=== PATIENT | female | born 1940 | race Caucasian/White ===

== ENCOUNTER 2017-05-19 22:54 | Inpatient (IN) | payer OTHER ==
[~2017-05-19] VITALS: Ht 154.9 cm; Wt 73.5 kg
--- NOTE | 2017-05-19 22:57 | ED GI/GU/ABDOMINAL COMPLAINT ---
History of Present Illness General Chief Complaint: Abdominal Pain/Flank Pain Stated Complaint: BIBA LOW ABD PAIN, ?CONSTIPATION Source: patient Exam Limitations: no limitations Vital Signs & Intake/Output Vital Signs & Intake/Output Vital Signs Date Time Temp Pulse Resp B/P B/P Pulse O2 O2 Flow FiO2 Mean Ox Delivery Rate 05/20 0220 99.0 100 20 138/68 98 Room Air 05/20 0207 99.0 84 20 122/60 97 05/20 0018 98.4 112 18 126/79 97 Room Air 05/19 2310 98.0 128 16 159/95 99 Room Air ED Intake and Output 05/20 0000 05/19 1200 Intake Total Output Total Balance Patient 162 lb Weight Weight Reported by Patient Measurement Method F Triage Nurses Notes Reviewed? yes ? N Is pt currently ? No (N) Timing: recent history Quality/Severity: aching, cramping, moderate Severity Numbers: 5 Location: periumbilical Activities at Onset: none HPI: PT IS A 76 Y/O FEMALE WITH PMH OF HLD, DM ON METFORMIN, IRON DEFICIENCY ANEMIA who presents emergency room brought in by an lens for concerns of a 48-hour history of gradually worsening nonradiating periumbilical abdominal pain. Patient states that she has not had a bowel movement in over 24 hours were yesterday she tried Pepto-Bismol and Gas-X and had minimal dark stool with no blood patient has not had a bowel movement today. Patient denies any fever chills shortness breath or arm pain jaw pain back pain dysuria hematuria vaginal bleeding or discharge. Patient denies any significant NSAID use or alcohol use. Patient does state that she was able to drink water today with no change in symptoms and was able tolerate with no vomiting (Lopez Hess) Allergies Coded Allergies: No Known Allergies (05/20/17) Reconcile Medications Metformin HCl (Metformin HCl ER) 500 MG TAB.ER.24H 1 TAB PO BID DM (Reported) Simvastatin (Simvastatin*) 10 MG TABLET 1 TAB PO QPM CHOL (Reported) (Tameka SNELL,Odell Kolb) Past History Travel History Traveled to [place] past 21 day No Medical History Any Pertinent Medical History? see below for history Cardiovascular: hyperlipidemia Endocrine: diabetes Blood Disorders: anemia Surgical History Surgical History: non-contributory Family History Hx Contributory? No (Lopez Hess) Review of Systems Review of Systems Constitutional: Reports: see HPI. EENTM: Reports: no symptoms. Respiratory: Reports: no symptoms. Cardiovascular: Reports: no symptoms. GI: Reports: see HPI, abdominal pain, constipation. Denies: bloating, nausea. Genitourinary: Reports: no symptoms. Musculoskeletal: Reports: no symptoms. Skin: Reports: no symptoms. Neurological/Psychological: Reports: no symptoms. Hematologic/Endocrine: Reports: no symptoms. Immunologic/Allergic: Reports: no symptoms. All Other Systems: Reviewed and Negative (Lopez Hess) Physical Exam Physical Exam General Appearance: no apparent distress, alert Head: atraumatic Eyes: Bilateral: normal appearance. Ears, Nose, Throat, Mouth: hearing grossly normal Neck: normal inspection Respiratory: normal breath sounds Cardiovascular: tachycardia Gastrointestinal: normal bowel sounds, soft, tenderness (PERIUMBILICAL TENDERNESS) Back: normal inspection Neurologic/Psych: no motor/sensory deficits Skin: intact, normal color, warm/dry Core Measures ACS in differential dx? No Sepsis Present: No Sepsis Focused Exam Completed? No (Lopez Hess) Progress Differential Diagnosis: AAA, AMI, appendicitis, biliary colic, bowel obstruction , colon cancer, cholecystitis, diverticulitis, endometritis, esophageal varices, gastritis, hepatitis, hernia, hemorrhoids, ischemic bowel, inflamm bowel dis, kidney stone, ovarian cyst, ovarian torsion, pancreatitis, PID/cervicitis, peptic ulcer, PUD/GERD, perforated viscous, SBO, UTI/pyelo Plan of Care: Orders Procedure Date/time Status Nothing by Mouth 05/20 B Active [id number] VIEWS 05/20 1200 Active BASIC ELECTROLYTES PLUS BUN&CR 05/20 0700 Active Vital Signs 05/20 0246 Active Teach/Educate 05/20 245 Active Pain Treatment and Response 05/20 245 Active Nutritional Intake, Monitor 05/20 245 Active Isolation 05/20 024 Active Intake & Output 05/20 0246 Active Patient Care Conference 05/20 0246 Active Activity/Ambulation 05/20 245 Active Pathway - chart 05/20 0200 Active Pathway - chart 05/20 0128 Active Patient Data 05/20 0128 Active Misc Message 05/20 28 Active ED Holding Orders 05/20 28 Active Admit to inpatient 05/20 002 Active Vital Signs 05/209 Active Code Status 05/20 28 Active PARTIAL THROMBOPLASTIN TIME 05/20 0008 Complete PROTHROMBIN TIME 05/20 7 Complete LACTIC ACID 05/20 7 Complete TYPE & SCREEN (NOT X-MATCH) 05/20 7 Complete GLUCOSE NPO OR CONTINUOUS TF 05/20 UNK Active VTE Mechanical Prophylaxis 05/20 UNK Active Nursing Misc 05/20 UNK Active Intake & Output 05/20 UNK Active FingerStick- Glucose 05/20 UNK Active Activity/Ambulation 05/20 UNK Active TROPONIN LEVEL 05/19 230 Complete LIPASE 05/19 2301 Complete COMPREHENSIVE METABOLIC PANEL 05/19 2301 Complete CBC WITHOUT DIFFERENTIAL 05/19 2301 Complete AMYLASE 05/19 2301 Complete EKG 05/19 2301 Active Current Medications Sig/July Start time Last Medication Dose Stop Time Status Admin Pantoprazole Sodium 40 MG DAILY 05/20 1000 AC (Protonix) Heparin Sodium 5,000 UNIT Q8 05/20 0600 AC (Porcine) Insulin Human Regular 0 Q6 05/20 0600 AC (NovoLIN R) Acetaminophen 1,000 MG Q6P PRN 05/20 0130 AC (Ofirmev) N/A 1 UNIT (No Carrier) Dextrose/Sodium 1,000 ML .Q8H 05/20 0130 AC 05/20 Chloride 0148 (D5W-1/2 Normal Saline 1000ML) Morphine Sulfate 4 MG Q4-6 PRN PRN 05/20 0130 AC (Morphine) Morphine Sulfate 6 MG Q4-6 PRN PRN 05/20 0130 AC 05/20 (Morphine) 0455 Ondansetron HCl 4 MG Q8P PRN 05/20 0130 AC (Zofran) Sodium Chloride 1,000 ML ONCE ONE 05/20 0030 AC (Normal Saline 0.9%) 05/20 0709 Laboratory Tests 05/20/17 0308: Lactic Acid Cancelled 05/20/17 0025: Lactic Acid 1.4, PT 12.4, INR 1.18, APTT 20 L 05/20/17 0000: CBC w Diff NO MAN DIFF REQ, RBC 4.82, MCV 78.0 L, MCH 25.3 L, RDW 18.3 H, MPV 8.6, Gran % 70.9, Lymphocytes % 17.5 L, Monocytes % 11.0 H, Eosinophils % 0.2, Basophils % 0.4, Absolute Granulocytes 5.8, Absolute Lymphocytes 1.4, Absolute Monocytes 0.9 H, Absolute Eosinophils 0, Absolute Basophils 0, PUBS MCHC 32.4 L 05/19/175: Anion Gap 12, Estimated GFR 48 L, BUN/Creatinine Ratio 20.0, Glucose 192 H, Calcium 9.6, Total Bilirubin 0.6, AST 21, ALT 29, Alkaline Phosphatase 60, Troponin I < 0.01, Total Protein 6.4, Albumin 3.7, Globulin 2.7, Albumin/ Globulin Ratio 1.4, Amylase < 30 L, Lipase 25 05/19/172302: Amylase Cancelled, Lipase Cancelled Patient on initial examination was resting comfortable at bedside patient was offered pain medications however declines however has PERIumbilical point tenderness. Patient was afebrile Patient does have CT scan findings concerns of small bowel obstruction, discussed patient with Dr. Valencia who advised to not emergently provide patient with NG tube Surgical PA also CONSULTED PT discussed admission with patient who has no questions and was informed of patient's clinical disposition and agrees with admission PT NPO Diagnostic Imaging: Viewed by Me: CT Scan. Radiology Impression: acute abnormality Initial ED EKG: SINUS TACHYCARDIA 112 BPM Comments: PATIENT: SYED COOPER PRESENT AGE: 76 PATIENT ACCOUNT NO: [id number] : 41 LOCATION: ER ORDERING PHYSICIAN: Lopez ESCOBEDO SERVICE DATE: 05/19/17 EXAM TYPE: CAT - CT ABD & PELVIS W/O IV CONTRAS EXAMINATION: CT ABDOMEN AND PELVIS WITHOUT CONTRAST CLINICAL INFORMATION: Periumbilical pain. COMPARISON: None TECHNIQUE: Multidetector volumetric imaging was performed from the superior aspect of the liver through the pubic symphysis. Sagittal and coronal reformatted images were obtained on the technologist's workstation. DLP: 397.31 mGy-cm FINDINGS: LUNG BASES: The visualized lung bases are unremarkable. LIVER, GALLBLADDER, AND BILIARY TREE: 8 mm hypodensity central right lobe of liver indeterminate on this exam. Statistically likely small hepatic cyst. No suspicious liver lesion. No intrahepatic bile duct dilatation. Small stones seen in the dependent gallbladder. No edema around the gallbladder. No bile duct dilatation. PANCREAS: Unremarkable. SPLEEN: Unremarkable. ADRENAL GLANDS: Unremarkable. KIDNEYS AND URETERS: Lucency in the right and left parapelvic areas likely from parapelvic cysts. There is no hydroureter or significant dilatation of the calyces. There is a nonobstructive 6 mm stone in the lower pole of the right kidney. No ureteral calculus. MESENTERY: Small amount of free fluid in the mesentery. No inflammation or free air. BLADDER: Unremarkable. GASTROINTESTINAL TRACT: There is diverticulosis of sigmoid and left colon with a few diverticula of the right colon. No diverticulitis. There is mild dilatation of proximal mid small bowel loops. The distal small bowel loops are decompressed. Transition point in the low central pelvis. Bowel pattern suggests a mild small bowel obstruction. No bowel wall thickening or edema. No air in the bowel wall. The appendix is not seen. ABDOMINAL WALL: No significant hernia is appreciated. LYMPH NODES: Normal. VASCULAR: Unremarkable. PELVIC VISCERA: Uterus is anteverted. No adnexal abnormality. OSSEOUS STRUCTURES: Multilevel degenerative spondylosis of spine with bridging osteophytes of thoracic vertebrae. Facet joint arthrosis lower lumbar spine. IMPRESSION: 1. Partial small bowel obstruction. Small amount of fluid in the mesentery but no inflammation or free air. 2. Diverticulosis of colon without diverticulitis. 3. Appendix not visualized. 4. Cholelithiasis without acute change of gallbladder wall. 5. Nonobstructive 6 mm stone lower pole right kidney. 6. No ventral wall hernia. DICTATED BY: Alex Adrian MD DATE/TIME DICTATED:05/19/172344 SHEET MET[employer] LAY OUT WORKER:LYNN (Lopez Hess) Departure Departure Disposition: STILL A PATIENT Condition: Guarded Clinical Impression Primary Impression: Small bowel obstruction Departure Forms: Customer Survey General Discharge Information Admission Note Spoke With: Hima Valencia DO Documentation of Exam: Documentation of any treatments & extenuating circumstances including Concerns Regarding Discharge (functional status, medication knowledge or non-compliance, living conditions, etc.) that warrant an admission rather than observation: (Lopez Hess) PA/JOB RECRUITER Co-Sign Statement Statement: ED Attending supervision documentation- [x] I saw and evaluated the patient. I have also reviewed all the pertinent lab results and diagnostic results. I agree with the findings and the plan of care as documented in the PA's/JOB RECRUITER's documentation. Patient presents for evaluation of abdominal pain. Physical examination revealed a diffusely tender abdomen. [] I have reviewed the ED Record and agree with the PA's/JOB RECRUITER's documentation. [] Additions or exceptions (if any) to the PAs/JOB RECRUITER's note and plan are summarized below: [] (Tameka SNELL,Odell Kolb) Critical Care Note Critical Care Note Critical Care Time: 30-74 min (Lopez Hess)
--- NOTE | 2017-05-19 23:54 | CT SCAN REPORT ---
EXAMINATION: CT ABDOMEN AND PELVIS WITHOUT CONTRAST CLINICAL INFORMATION: Periumbilical pain. COMPARISON: None TECHNIQUE: Multidetector volumetric imaging was performed from the superior aspect of the liver through the pubic symphysis. Sagittal and coronal reformatted images were obtained on the technologist's workstation. DLP: 397.31 mGy-cm FINDINGS: LUNG BASES: The visualized lung bases are unremarkable. LIVER, GALLBLADDER, AND BILIARY TREE: 8 mm hypodensity central right lobe of liver indeterminate on this exam. Statistically likely small hepatic cyst. No suspicious liver lesion. No intrahepatic bile duct dilatation. Small stones seen in the dependent gallbladder. No edema around the gallbladder. No bile duct dilatation. PANCREAS: Unremarkable. SPLEEN: Unremarkable. ADRENAL GLANDS: Unremarkable. KIDNEYS AND URETERS: Lucency in the right and left parapelvic areas likely from parapelvic cysts. There is no hydroureter or significant dilatation of the calyces. There is a nonobstructive 6 mm stone in the lower pole of the right kidney. No ureteral calculus. MESENTERY: Small amount of free fluid in the mesentery. No inflammation or free air. BLADDER: Unremarkable. GASTROINTESTINAL TRACT: There is diverticulosis of sigmoid and left colon with a few diverticula of the right colon. No diverticulitis. There is mild dilatation of proximal mid small bowel loops. The distal small bowel loops are decompressed. Transition point in the low central pelvis. Bowel pattern suggests a mild small bowel obstruction. No bowel wall thickening or edema. No air in the bowel wall. The appendix is not seen. ABDOMINAL WALL: No significant hernia is appreciated. LYMPH NODES: Normal. VASCULAR: Unremarkable. PELVIC VISCERA: Uterus is anteverted. No adnexal abnormality. OSSEOUS STRUCTURES: Multilevel degenerative spondylosis of spine with bridging osteophytes of thoracic vertebrae. Facet joint arthrosis lower lumbar spine. IMPRESSION: 1. Partial small bowel obstruction. Small amount of fluid in the mesentery but no inflammation or free air. 2. Diverticulosis of colon without diverticulitis. 3. Appendix not visualized. 4. Cholelithiasis without acute change of gallbladder wall. 5. Nonobstructive 6 mm stone lower pole right kidney. 6. No ventral wall hernia.
[2017-05-20 00:11] LABS: ABSOLUTE BASOPHIL COUNT 0 /CUMM (0.0-0.2); ABSOLUTE EOSINOPHIL COUNT 0 /CUMM (0.0-0.7); ABSOLUTE GRANULOCYTE CT 5.8 /CUMM (1.4-6.5); ABSOLUTE LYMPH COUNT 1.4 /CUMM (1.2-3.4); ABSOLUTE MONOCYTE COUNT 0.9 /CUMM (0.10-0.60); BASOPHIL % 0.4 % (0.0-2.0); EOSINOPHIL % 0.2 % (0-5); GRANULOCYTE % 70.9 % (42.2-75.2); HEMATOCRIT 37.6 % (37-47); MEAN CORPUSCULAR HGB 25.3 PG (27.0-31.0); MEAN CORPUSCULAR HGB CONC 32.4 G/DL (33.0-37.0); MEAN PLATELET VOLUME 8.6 FL (7.4-10.4); PLATELET COUNT 277 /CUMM (130-400); RBC DISTRIBUTION WIDTH 18.3 % (11.5-14.5); RED BLOOD CELL CT 4.82 /CUMM (4.20-5.40); WHITE BLOOD CELL COUNT 8.1 /CUMM (4.8-10.8)
[2017-05-20 00:43] LABS: PT 12.4 SEC (9.4-12.5); PTT 20 SEC (25-37)
[2017-05-20] MEDS ORDERED: SIMVASTATIN10 M1 PO (01:12)
[2017-05-20] MEDS ORDERED: METFORMIN HCL500 M4 PO (01:12)
--- NOTE | 2017-05-20 02:02 | History & Physical ---
George Willoughby 05/20/17 0130: General Information and HPI MD Statement: I have seen and personally examined SYED COOPER and documented this H&P. The patient is a 76 year old F who presented with a patient stated chief complaint of []. Source of Information: patient Exam Limitations: no limitations History of Present Illness: This is a 76 year-old female with a history of diabetes, hypercholesterolemia, iron deficiency and B12 anemia who presents to the emergency room complaining of a 2 day history of constant epigastric abdominal pain. She states she had a hard boiled egg and half a bagel yesterday morning and around 1 pm developed epigastric pain with associated nausea and decreased appetite. She states she took peptobismol and gas-x without relief. She also reports taking senna and had a small dark-colored stool this morning. She reports passing flatus and a change in the color and frequency of her bowels since she started taking iron in August. She reports similar symptoms 3 months ago after consuming pumpkin seeds, which resolved with an unknown OTC substance that she cannot recall. She reports her last colonoscopy was last year where she was found to have H. Pylroi and completed a 2 week treatment and was retested and found negative to have H. Pylori. Due to persistent pain, patient presented to the ER for further evaluation. In the ER, she was found to have a partial small bowel obstruction on CT scan. Allergies/Medications Allergies: Coded Allergies: No Known Allergies (05/20/17) Home Med list Metformin HCl (Metformin HCl ER) 500 MG TAB.ER.24H 1 TAB PO BID DM (Reported) Simvastatin (Simvastatin*) 10 MG TABLET 1 TAB PO QPM CHOL (Reported) Past History Travel History Traveled to [place] past 21 day No Medical History Cardiovascular: hyperlipidemia Endocrine: diabetes Blood Disorders: anemia Surgical History Surgical History: non-contributory Past Family/Social History Psychosocial History ETOH Use: occasional use Illicit Drug Use: denies illicit drug use Review of Systems Review of Systems Constitutional: Denies: no symptoms. EENTM: Denies: no symptoms. Cardiovascular: Denies: no symptoms. Respiratory: Denies: no symptoms. GI: Reports: see HPI. Genitourinary: Denies: no symptoms. Musculoskeletal: Denies: no symptoms. Skin: Denies: no symptoms. Neurological/Psychological: Denies: no symptoms. Hematologic/Endocrine: Denies: see HPI. Immunologic/Allergic: Denies: no symptoms. All Other Systems: Reviewed and Negative Exam & Diagnostic Data Last 24 Hrs of Vital Signs/I&O Vital Signs Date Time Temp Pulse Resp B/P B/P Pulse O2 O2 Flow FiO2 Mean Ox Delivery Rate 05/20 0018 98.4 112 18 126/79 97 Room Air 05/19 2310 98.0 128 16 159/95 99 Room Air Intake & Output 05/20 0800 05/20 0000 05/19 1600 Intake Total Output Total Balance Patient 162 lb Weight Weight Reported by Patient Measurement Method Physical Exam General Appearance Alert, Oriented X3, No Acute Distress Skin Temp/Moisture Exam: Warm/Dry HEENT Atraumatic, Mucous Membr. moist/pink Neck Supple, No JVD, No LAD Cardiovascular Regular Rate, Normal S1, Normal S2 Lungs Clear to Auscultation Abdomen Soft, Mildly distended with normoactive bowel sounds, tympanic to percussion, tender to light and deep palpation in the epigastric region, no rebound Last 24 Hrs of Labs/Yehuda: Laboratory Tests 05/20/17 0025: Lactic Acid 1.4, PT 12.4, INR 1.18, APTT 20 L 05/20/17 0000: CBC w Diff NO MAN DIFF REQ, RBC 4.82, MCV 78.0 L, MCH 25.3 L, RDW 18.3 H, MPV 8.6, Gran % 70.9, Lymphocytes % 17.5 L, Monocytes % 11.0 H, Eosinophils % 0.2, Basophils % 0.4, Absolute Granulocytes 5.8, Absolute Lymphocytes 1.4, Absolute Monocytes 0.9 H, Absolute Eosinophils 0, Absolute Basophils 0, PUBS MCHC 32.4 L 05/19/17 2315: Anion Gap 12, Estimated GFR 48 L, BUN/Creatinine Ratio 20.0, Glucose 192 H, Calcium 9.6, Total Bilirubin 0.6, AST 21, ALT 29, Alkaline Phosphatase 60, Troponin I < 0.01, Total Protein 6.4, Albumin 3.7, Globulin 2.7, Albumin/ Globulin Ratio 1.4, Amylase < 30 L, Lipase 25 05/19/172302: Amylase Cancelled, Lipase Cancelled Diagnostic Data Other Results SERVICE DATE: 05/19/17-2302 EXAM TYPE: CAT - CT ABD & PELVIS W/O IV CONTRAS EXAMINATION: CT ABDOMEN AND PELVIS WITHOUT CONTRAST CLINICAL INFORMATION: Periumbilical pain. COMPARISON: None TECHNIQUE: Multidetector volumetric imaging was performed from the superior aspect of the liver through the pubic symphysis. Sagittal and coronal reformatted images were obtained on the technologist's workstation. DLP: 397.31 mGy-cm FINDINGS: LUNG BASES: The visualized lung bases are unremarkable. LIVER, GALLBLADDER, AND BILIARY TREE: 8 mm hypodensity central right lobe of liver indeterminate on this exam. Statistically likely small hepatic cyst. No suspicious liver lesion. No intrahepatic bile duct dilatation. Small stones seen in the dependent gallbladder. No edema around the gallbladder. No bile duct dilatation. PANCREAS: Unremarkable. SPLEEN: Unremarkable. ADRENAL GLANDS: Unremarkable. KIDNEYS AND URETERS: Lucency in the right and left parapelvic areas likely from parapelvic cysts. There is no hydroureter or significant dilatation of the calyces. There is a nonobstructive 6 mm stone in the lower pole of the right kidney. No ureteral calculus. MESENTERY: Small amount of free fluid in the mesentery. No inflammation or free air. BLADDER: Unremarkable. GASTROINTESTINAL TRACT: There is diverticulosis of sigmoid and left colon with a few diverticula of the right colon. No diverticulitis. There is mild dilatation of proximal mid small bowel loops. The distal small bowel loops are decompressed. Transition point in the low central pelvis. Bowel pattern suggests a mild small bowel obstruction. No bowel wall thickening or edema. No air in the bowel wall. The appendix is not seen. ABDOMINAL WALL: No significant hernia is appreciated. LYMPH NODES: Normal. VASCULAR: Unremarkable. PELVIC VISCERA: Uterus is anteverted. No adnexal abnormality. OSSEOUS STRUCTURES: Multilevel degenerative spondylosis of spine with bridging osteophytes of thoracic vertebrae. Facet joint arthrosis lower lumbar spine. IMPRESSION: 1. Partial small bowel obstruction. Small amount of fluid in the mesentery but no inflammation or free air. 2. Diverticulosis of colon without diverticulitis. 3. Appendix not visualized. 4. Cholelithiasis without acute change of gallbladder wall. 5. Nonobstructive 6 mm stone lower pole right kidney. 6. No ventral wall hernia. Assessment/Plan Assessment: This is a 76 year-old female with a history of type 2 diabetes, hypercholesterolemia, iron deficiency and B12 anemia who presents with a 2 day history of epigastric pain with associated nausea, decreased appetite, dehydration and evidence of a partial sbo on imaging. She reports passing flatus an a small BM this morning Keep npo on IVF IV analgesics/antiemetics on board Insulin sliding scale, fingersticks Q6 Monitor with serial abdominal exams GI/DVT ppx on board Reeval with AXR with gastrograffin tomorrow am Repeat chem in am Place in observation for conservative management D/w Dr. Valencia As Ranked By This Provider Problem List: 1. Partial small bowel obstruction Core Measures/Misc (01/30) Acute Coronary Syndrome ACS Diagnosis: No Congestive Heart Failure Congestive Heart Failure Diagnosis No Cerebrovascular Accident CVA/TIA Diagnosis: No VTE (View Protocol) VTE Risk Factors Age>40 No Mechanical VTE Prophylaxis d/t N/A MechProphylax Ordered No VTE Pharm Prophylaxis d/t NA PharmProphylax ordered Sepsis (View protocol) Sepsis Present: No Erik Hima MCCLAIN 05/20/17 1810: Attending MD Review Statement Attending Statement Attending MD Statement: examined this patient, discuss w/resident/PA/CLINICAL TRIAL DATA MANAGER, agreed w/resident/PA/CLINICAL TRIAL DATA MANAGER, discussed with family, reviewed EMR data (avail), reviewed images Attending Assessment/Plan: Patient seen and examined, agree with above. 2 days of epigastric discomfort and only small amount of stool yeaterday morning. Currently feels better with pretty much no pain, N, or V (had an episode of emesis earlier today). Afebrile HR 84- 128 (patient very nervous about being in the hospital) BP ok. Abd - soft, mild lower abdominal discomfort, no peritroneal signs, no tympany. Labs ok. CT scan - ?mild partial SBO? (as read by radiologist), AXR today contrast has not reached the cecum, only a couple of dilated loops in the pelvis. Given patient's clinical improvement will continue conservative management, repeat AXR in AM, NPO/IVF, D/W patient and family that if no resolution in next 24-48 hours she may need a surgical intervention.
[2017-05-20 02:20] VITALS: BP 138/68
[2017-05-20 06:35] VITALS: BP 124/66
--- NOTE | 2017-05-20 07:48 | PN- General Surgery ---
Subjective Subjective: Reports abdominal pain improves with pain medication. Denies nausea. No flatus or bm reported. She is currently drinking the gastrograffin contrast, with follow up xray planned for around noon. Objective Vital Signs and I&Os Vital Signs Date Time Temp Pulse Resp B/P B/P Pulse O2 O2 Flow FiO2 Mean Ox Delivery Rate 05/20 0535 98.7 108 18 124/66 98 Room Air 05/20 0220 99.0 100 20 138/68 98 Room Air 05/20 0207 99.0 84 20 122/60 97 05/20 0018 98.4 112 18 126/79 97 Room Air 05/19 2310 98.0 128 16 159/95 99 Room Air Intake & Output 05/20 0000 05/19 1600 05/19 0805/19 0000 05/18 1600 Intake Total Output Total Balance Patient 162 lb 162 lb Weight Weight Reported by Patient Measurement Method Physical Exam: General - alert & oriented x 3. comfortable. no acute distress. Lungs - clear. no w/r/r. Cardiac - s1s2. reg Abdomen - soft. mild carolyn-umbilical tenderness. not diffusely tender. Extremities - warm bilaterally. no c/c/e. calves soft and nontender b/l. Current Medications: Current Medications Sig/July Start time Last Medication Dose Route Stop Time Status Admin Acetaminophen 1,000 MG Q6P PRN 05/20 013 AC N/A 1 UNIT IV Dextrose/Sodium 1,000 ML .Q8H 05/20 129 AC 05/20 Chloride IV 0148 Heparin Sodium 5,000 UNIT Q8 05/20 06 AC 05/20 (Porcine) SC 0650 Insulin Human Regular 0 Q6 05/20 0600 AC 05/20 SC 0650 Morphine Sulfate 4 MG Q4-6 PRN PRN 05/20 013 AC IV Morphine Sulfate 6 MG Q4-6 PRN PRN 05/20 0130 AC 05/20 IV 0455 Ondansetron HCl 4 MG Q8P PRN 05/20 013 AC IV Pantoprazole Sodium 40 MG DAILY 05/20 1000 AC IV Sodium Chloride 1,000 ML ONCE ONE 05/20 0030 DC IV 05/20 0709 Results Last 48 Hours of Labs: Laboratory Tests 05/20 05/20 05/20 0308 0025 0000 Chemistry Lactic Acid (0.7 - 2.1 mmol/L) Cancelled 1.4 Coagulation PT (9.4 - 12.5 SEC) 12.4 INR (0.90 - 1.19) 1.18 APTT (25 - 37 SEC) 20 L Hematology CBC w Diff NO MAN DIFF REQ WBC (4.8 - 10.8 /CUMM) 8.1 RBC (4.20 - 5.40 /CUMM) 4.82 Hgb (12.0 - 16.0 G/DL) 12.2 Hct (37 - 47 %) 37.6 MCV (81.0 - 99.0 FL) 78.0 L MCH (27.0 - 31.0 PG) 25.3 L RDW (11.5 - 14.5 %) 18.3 H Plt Count (130 - 400 /CUMM) 277 MPV (7.4 - 10.4 FL) 8.6 Gran % (42.2 - 75.2 %) 70.9 Lymphocytes % (20.5 - 51.1 %) 17.5 L Monocytes % (1.7 - 9.3 %) 11.0 H Eosinophils % (0 - 5 %) 0.2 Basophils % (0.0 - 2.0 %) 0.4 Absolute Granulocytes (1.4 - 6.5 /CUMM) 5.8 Absolute Lymphocytes (1.2 - 3.4 /CUMM) 1.4 Absolute Monocytes (0.10 - 0.60 /CUMM) 0.9 H Absolute Eosinophils (0.0 - 0.7 /CUMM) 0 Absolute Basophils (0.0 - 0.2 /CUMM) 0 PUBS MCHC (33.0 - 37.0 G/DL) 32.4 L 05/19 05/19 2315 2303 Chemistry Sodium (137 - 145 mmol/L) 137 Potassium (3.5 - 5.1 mmol/L) 4.5 Chloride (98 - 107 mmol/L) 102 Carbon Dioxide (22 - 30 mmol/L) 23 Anion Gap (5 - 16) 12 BUN (7 - 17 mg/dL) 22 H Creatinine (0.5 - 1.0 mg/dL) 1.1 H Estimated GFR (>60 ml/min) 48 L BUN/Creatinine Ratio (7 - 25 %) 20.0 Glucose (65 - 99 mg/dL) 192 H Calcium (8.4 - 10.2 mg/dL) 9.6 Total Bilirubin (0.2 - 1.3 mg/dL) 0.6 AST (14 - 36 U/L) 21 ALT (9 - 52 U/L) 29 Alkaline Phosphatase (<127 U/L) 60 Troponin I (< 0.11 ng/ml) < 0.01 Total Protein (6.3 - 8.2 g/dL) 6.4 Albumin (3.5 - 5.0 g/dL) 3.7 Globulin (1.9 - 4.2 gm/dL) 2.7 Albumin/Globulin Ratio (1.1 - 2.2 %) 1.4 Amylase (30 - 110 U/L) < 30 L Cancelled Lipase (23 - 300 U/L) 25 Cancelled Assessment/Plan Assessment/Plan This is a 76 year-old female with a hx of type 2 diabetes, hypercholesterolemia, iron deficiency and B12 anemia who presents with a 2 day history of epigastric pain with associated nausea, decreased appetite, dehydration and evidence of a partial sbo on noncontrast CT study currently npo / ivf pain controlled with iv morphine currently drinking gastrograffin contrast, with f/u multiview @ noon f/u lytes plus bun/cr accuchecks / ss coverage hep sc - dvt ppx oob/ambulation will d/w Core Measures Venous Thromboembolism VTE Risk Factors Age>40 No Mechanical VTE Prophylaxis d/t N/A MechProphylax Ordered No VTE Pharm Prophylaxis d/t NA PharmProphylax ordered
--- NOTE | 2017-05-20 15:31 | RADIOLOGY REPORT ---
EXAMINATION: XR ABDOMEN MULTIPLE VIEWS CLINICAL INDICATION: Small bowel obstruction. Reevaluation. COMPARISON: CT abdomen pelvis 05/19/2017 TECHNIQUE: 4 of the abdomen. FINDINGS: Air-fluid levels are seen on upright imaging. Contrast material is seen throughout the small bowel and does not appear to reach the colon as of yet. The majority of small bowel loops are within normal size limits with a segment of distended small bowel in the right lower quadrant measuring 4.9 cm. IMPRESSION: Air-fluid levels consistent with the diagnosis of small bowel obstruction. Most of the small bowel loops are normal caliber with the exception of a segment in the right lower quadrant which is dilated to 4.9 cm. Contrast has not yet reached the cecum.
[2017-05-20 18:49] VITALS: BP 120/80
[2017-05-20 22:16] VITALS: BP 114/70
[2017-05-21 07:00] VITALS: BP 102/60
[2017-05-21 08:10] LABS: ABSOLUTE BASOPHIL COUNT 0 /CUMM (0.0-0.2); ABSOLUTE EOSINOPHIL COUNT 0.1 /CUMM (0.0-0.7); ABSOLUTE GRANULOCYTE CT 4.9 /CUMM (1.4-6.5); BASOPHIL % 0.4 % (0.0-2.0); EOSINOPHIL % 0.7 % (0-5); GRANULOCYTE % 60.9 % (42.2-75.2); HEMATOCRIT 33.6 % (37-47); MEAN CORPUSCULAR HGB 25.5 PG (27.0-31.0); MEAN CORPUSCULAR HGB CONC 32.6 G/DL (33.0-37.0); MEAN CORPUSCULAR VOLUME 78.1 FL (81.0-99.0); MEAN PLATELET VOLUME 9.3 FL (7.4-10.4); PLATELET COUNT 295 /CUMM (130-400); RBC DISTRIBUTION WIDTH 18.5 % (11.5-14.5)
--- NOTE | 2017-05-21 11:00 | RADIOLOGY REPORT ---
EXAMINATION: XR ABDOMEN MULTIPLE VIEWS CLINICAL INDICATION: Nausea/vomiting. Started Reglan [id number]. Presumptive diagnosis of small bowel obstruction. COMPARISON: [facility] dated 05/20/2017. CT scan of the abdomen and pelvis dated 05/19/2017. TECHNIQUE: 2 views of the abdomen, performed on 3 images. FINDINGS: Near-complete resolution of the previously seen abnormal small bowel dilatation and air-fluid levels is seen with only a mildly distended segment of small bowel seen in the left side of the abdomen measuring up to 3.8 cm in diameter. No significant air-fluid levels are seen. Orally administered contrast is seen outlining the colon with diffuse colonic diverticulosis noted. Mild convex left thoracolumbar scoliosis and mild vertebral spondylosis in the thoracolumbar spine is seen. Mild right basilar linear subsegmental atelectasis is seen. IMPRESSION: Near complete resolution of previously seen small bowel obstruction. Mild gaseous distention of loops of small bowel in the left side of the abdomen remains.
[2017-05-21] MEDS ORDERED: COLACE100 M1 PO (11:50)
--- NOTE | 2017-05-21 11:57 | Patient Discharge Instructions ---
Discharge Instructions General Discharge Information You were seen/treated for: SMALL BOWEL OBSTRUCTION You had these procedures: CONSERVATIVE MANAGEMENT WITH BOWEL REST, IV FLUIDS Watch for these problems: ABDOMINAL PAIN, NAUSEA, VOMITING Diet Continue normal diet: Yes Additional DIET Information: YOU MAY TAKE COLACE 100 MG BY MOUTH TWICE DAILY TO PREVENT CONSTIPATION WHILE TAKING YOUR IRON PILLS. PLEASE REDUCE FREQUENCY TO ONCE DAILY OR DISCONTINUE THIS MEDICATION IF LOOSE STOOLS OCCUR. YOU MAY FOLLOW UP WITH YOUR PCP FOR OUTPATIENT MANAGEMENT. Activity Full Activity/No Limits: Yes Acute Coronary Syndrome Inclusion Criteria At DC or during hospital stay patient has or had the following: ACS DIAGNOSIS No Discharge Core Measures Meds if any: Prescribed or Continued at Discharge Meds if any: NOT Prescribed or Continued at Discharge Congestive Heart Failure Inclusion Criteria At DC or during hospital stay patient has or had the following: CHF DIAGNOSIS No Discharge Core Measures Meds if any: Prescribed or Continued at Discharge Meds if any: NOT Prescribed or Continued at Discharge Cerebrovascular accident Inclusion Criteria At DC or during hospital stay patient has or had the following: CVA/TIA Diagnosis No Discharge Core Measures Meds if any: Prescribed or Continued at Discharge Meds if any: NOT Prescribed or Continued at Discharge Venous thromboembolism Inclusion Criteria VTE Diagnosis No VTE Type NONE VTE Confirmed by (Test) NONE Discharge Core Measures - Per Current guidelines, there needs to be overlap - treatment for the first 5 days of Warfarin therapy. - If discharged on Warfarin prior to 5 days of - overlap therapy, the patient will need to be - assessed for post discharge needs including - *Post discharge parental anticoagulation - *Warfarin and/or parental anticoagulation education - *Follow up date to check INR post discharge At least 5 days overlap therapy as Inpatient No Meds if any: Prescribed or Continued at Discharge Note: Overlap Therapy is Warfarin and Anticoagulant Meds if any: NOT Prescribed or Continued at Discharge
--- NOTE | 2017-05-21 12:10 | PN- General Surgery ---
Subjective Subjective: Patient has no major complaints and overall feels much better. Nausea has resolved and she has not been vomiting. She reports less bloating, is passing gas, and had a few bowel movements few. Objective Vital Signs and I&Os Vital Signs Date Time Temp Pulse Resp B/P B/P Pulse O2 O2 Flow FiO2 Mean Ox Delivery Rate 05/21 1455 97.8 98 20 126/68 98 Room Air 05/21 0700 98.3 100 18 102/60 97 Room Air 05/20 2216 98.4 90 20 114/70 96 Room Air 05/20 1908 107 05/20 1902 110 05/20 1849 97.9 117 20 120/80 96 Room Air Intake & Output 05/21 1600 05/21 0800 05/21 0000 05/20 1600 05/20 0000 Intake Total 600 400 750 Output Total 400 650 400 Balance 200 -250 350 Intake, IV 400 750 Intake, Oral 600 Number 1 3 Bowel Movements Output, Urine 400 650 400 Patient 162 lb 162 lb Weight Weight Reported by Patient Measurement Method Physical Exam: Oral: Patient is weak and alert. No acute distress. Cardiac: Regular Pulmonary: Clear Abdomen: Soft and nondistended. Nontender. Normoactive bowel sounds were heard. Results Last 48 Hours of Labs: Laboratory Tests 05/21 05/20 05/20 0655 0815 0308 Chemistry Sodium (137 - 145 mmol/L) 139 137 Potassium (3.5 - 5.1 mmol/L) 3.8 4.2 Chloride (98 - 107 mmol/L) 105 103 Carbon Dioxide (22 - 30 mmol/L) 24 24 Anion Gap (5 - 16) 10 9 BUN (7 - 17 mg/dL) 21 H 19 H Creatinine (0.5 - 1.0 mg/dL) 1.0 1.0 Estimated GFR (>60 ml/min) 54 L 54 L BUN/Creatinine Ratio (7 - 25 %) 21.0 19.0 Lactic Acid Cancelled Magnesium (1.6 - 2.3 mg/dL) 1.5 L Hematology CBC w Diff NO MAN DIFF REQ WBC (4.8 - 10.8 /CUMM) 8.0 RBC (4.20 - 5.40 /CUMM) 4.30 Hgb (12.0 - 16.0 G/DL) 11.0 L Hct (37 - 47 %) 33.6 L MCV (81.0 - 99.0 FL) 78.1 L MCH (27.0 - 31.0 PG) 25.5 L RDW (11.5 - 14.5 %) 18.5 H Plt Count (130 - 400 /CUMM) 295 MPV (7.4 - 10.4 FL) 9.3 Gran % (42.2 - 75.2 %) 60.9 Lymphocytes % (20.5 - 51.1 %) 25.5 Monocytes % (1.7 - 9.3 %) 12.5 H Eosinophils % (0 - 5 %) 0.7 Basophils % (0.0 - 2.0 %) 0.4 Absolute Granulocytes (1.4 - 6.5 /CUMM) 4.9 Absolute Lymphocytes (1.2 - 3.4 /CUMM) 2.0 Absolute Monocytes (0.10 - 0.60 /CUMM) 1.0 H Absolute Eosinophils (0.0 - 0.7 /CUMM) 0.1 Absolute Basophils (0.0 - 0.2 /CUMM) 0 PUBS MCHC (33.0 - 37.0 G/DL) 32.6 L 05/20 05/20 05/19 0025 0000 2315 Chemistry Sodium (137 - 145 mmol/L) 137 Potassium (3.5 - 5.1 mmol/L) 4.5 Chloride (98 - 107 mmol/L) 102 Carbon Dioxide (22 - 30 mmol/L) 23 Anion Gap (5 - 16) 12 BUN (7 - 17 mg/dL) 22 H Creatinine (0.5 - 1.0 mg/dL) 1.1 H Estimated GFR (>60 ml/min) 48 L BUN/Creatinine Ratio (7 - 25 %) 20.0 Glucose (65 - 99 mg/dL) 192 H Lactic Acid (0.7 - 2.1 mmol/L) 1.4 Calcium (8.4 - 10.2 mg/dL) 9.6 Total Bilirubin (0.2 - 1.3 mg/dL) 0.6 AST (14 - 36 U/L) 21 ALT (9 - 52 U/L) 29 Alkaline Phosphatase (<127 U/L) 60 Troponin I (< 0.11 ng/ml) < 0.01 Total Protein (6.3 - 8.2 g/dL) 6.4 Albumin (3.5 - 5.0 g/dL) 3.7 Globulin (1.9 - 4.2 gm/dL) 2.7 Albumin/Globulin Ratio (1.1 - 2.2 %) 1.4 Amylase (30 - 110 U/L) < 30 L Lipase (23 - 300 U/L) 25 Coagulation PT (9.4 - 12.5 SEC) 12.4 INR (0.90 - 1.19) 1.18 APTT (25 - 37 SEC) 20 L Hematology CBC w Diff NO MAN DIFF REQ WBC (4.8 - 10.8 /CUMM) 8.1 RBC (4.20 - 5.40 /CUMM) 4.82 Hgb (12.0 - 16.0 G/DL) 12.2 Hct (37 - 47 %) 37.6 MCV (81.0 - 99.0 FL) 78.0 L MCH (27.0 - 31.0 PG) 25.3 L RDW (11.5 - 14.5 %) 18.3 H Plt Count (130 - 400 /CUMM) 277 MPV (7.4 - 10.4 FL) 8.6 Gran % (42.2 - 75.2 %) 70.9 Lymphocytes % (20.5 - 51.1 %) 17.5 L Monocytes % (1.7 - 9.3 %) 11.0 H Eosinophils % (0 - 5 %) 0.2 Basophils % (0.0 - 2.0 %) 0.4 Absolute Granulocytes (1.4 - 6.5 /CUMM) 5.8 Absolute Lymphocytes (1.2 - 3.4 /CUMM) 1.4 Absolute Monocytes (0.10 - 0.60 /CUMM) 0.9 H Absolute Eosinophils (0.0 - 0.7 /CUMM) 0 Absolute Basophils (0.0 - 0.2 /CUMM) 0 PUBS MCHC (33.0 - 37.0 G/DL) 32.4 L 05/19 2303 Chemistry Amylase Cancelled Lipase Cancelled Recent Imaging Studies: Abdominal x-ray done this morning revealed complete resolution of bowel obstruction. Assessment/Plan Assessment/Plan Patient is a 76-year-old female who was admitted yesterday with a partial small bowel obstruction, which has now resolved with conservative management. Plan: -We will advance diet as tolerated and plan for discharge home if patient tolerates her diet. -Recommend adding Colace to patient's daily regimen, given that she takes iron at home and has been noticing less frequent bowel movements. -If symptoms of obstruction return, she can see Dr. Valencia in the office. Otherwise she can follow up with her PCP for long-term management of stool softeners with her iron. -Was discussed with the attending and he agrees with the plan. Update as of 3 PM: Patient has tolerated her diet will be discharged home. Core Measures Venous Thromboembolism VTE Risk Factors Age>40 No Mechanical VTE Prophylaxis d/t N/A MechProphylax Ordered No VTE Pharm Prophylaxis d/t NA PharmProphylax ordered
[2017-05-21 14:55] VITALS: BP 126/68
--- NOTE | 2017-05-21 14:57 | Surg Short-stay <48hrs Dis Sum ---
Visit Information Visit Dates Admission Date: 05/20/17 Discharge Date: 05/21/16 Surgical Short Stay DC Summary Admission Diagnosis: Partial small bowel obstruction Final Diagnosis: Same Procedure(s): Conservative management of partial small bowel obstruction with bowel rest, IV fluids, and serial abdominal exams. Summary/Significant Findings: Patient is a 76-year-old female with a history of diabetes, anemia, on iron supplementation, hyperlipidemia, and gout who presented to [facility] on 05/20/2017 with complaints of a 2 day history of epigastric abdominal discomfort. She was unable to find relief with [id number] medications, prompting presentation to the ED. She admits to a change in her bowel patterns since adding iron to her daily regimen. Workup in the ED revealed a partial small bowel obstruction. Patient has had no abdominal surgical history and no specific cause of the SBO was identified. She was placed in observation for conservative management with bowel rest, IV fluids, and serial abdominal exams. Within 24 hours, her symptoms improved, she started to pass flatus, and had several bowel movements. X-ray performed on hospital day #2 confirmed complete resolution of bowel obstruction. She was started on a regular diet, which she tolerated, and was subsequently discharged on Colace 100 mg twice a day to be taken with her iron supplementation order to prevent constipation. Condition at Discharge: stable Discharge Disposition: home or self care Discharge instructions provided to patient/family: Yes Post discharge follow-up plan: If symptoms of obstruction or abdominal issues return, patient may follow-up with Dr. Hima Valencia or in the emergency department if symptoms are severe. Otherwise, she may follow-up with her PCP for management of early chronic constipation due to iron supplementation. Copies to: Segun SNELL,Raina Valdes
== END 2017-05-21 17:44 | DRG 390 ==
LOC: ERH 22:54 → 2NB 05-20 00:29 → ERHI 05-20 00:29 → 2NB 05-20 02:21
PROVIDERS: Physician Assistant
DX: K56.600 Partial intestinal obstruction, unspecified as to cause (principal); D51.3 Other dietary vitamin B12 deficiency anemia; E11.9 Type 2 diabetes mellitus without complications; D51.9 Vitamin B12 deficiency anemia, unspecified; E86.0 Dehydration; D50.9 Iron deficiency anemia, unspecified; E78.00 Pure hypercholesterolemia, unspecified; Z79.84 Long term (current) use of oral hypoglycemic drugs; E78.5 Hyperlipidemia, unspecified; K57.30 Diverticulosis of large intestine without perforation or abscess without bleeding; K59.03 Drug induced constipation; T45.4X5A Adverse effect of iron and its compounds, initial encounter; K80.20 Calculus of gallbladder without cholecystitis without obstruction; N20.0 Calculus of kidney; M10.9 Gout, unspecified
CPT/HCPCS: 2NBSP; 36415; 74021; 74176; 82436; 93005; 93010; 99291; J1644; J2405; J2765; J7042